=== PATIENT | male | born 1970 | race Caucasian/White ===

== ENCOUNTER 2016-11-10 16:43 | Observation (INO) | payer MEDICAID ==
[~2016-11-10] VITALS: Ht 177.8 cm; Wt 79.4 kg
[2016-11-10 17:02] LABS: Urine RBC None Seen /hpf (0 - 3)
[2016-11-10 17:25] LABS: Urine Bilirubin Negative (Negative); Urine Blood Negative /uL (Negative); Urine Color Yellow (Yellow); Urine Glucose TRACE mg/dL (Normal); Urine Hyaline Cast FEW /lpf (0 - 2); Urine Ketone Negative (Negative); Urine Mucus FEW (None Seen); Urine Nitrite Negative (Negative); Urine Squamous Epithelial Cell FEW /hpf (<5); Urine pH 5.5 (5.0-8.0)
[2016-11-10 17:30] LABS: Basophils # (auto) 0.1 uL; Basophils % (auto) 0.9 % (0.0-2.0); Eosinophils # (auto) 0.3 uL; Hematocrit 48.9 % (41.0-53.0); Hemoglobin 16.4 g/dL (13.5-17.5); Lymphocytes % (auto) 24.1 % (10.0-50.0); Mean Corpuscular Hemoglobin 30.8 pg (28.0-32.0); Mean Corpuscular Hgb Conc. 33.5 g/dL (32.0-36.0); Mean Corpuscular Volume 91.8 fL (80.0-100.0); Mean Platelet Volume 7.9 fL (7.4-10.4); Monocytes # (auto) 0.7 uL; Neutrophils # (auto) 5.3 uL; Platelet Count (auto) 344 10^3/uL (140-450); Red Cell Distribution Width 13.8 % (11.6-16.0); White Blood Cell 8.3 10^3/uL (4.4-10.8)
[2016-11-10 17:53] LABS: BUN/Creatinine Ratio 11.1; Bilirubin, Total 0.7 mg/dL (0.2-1.0); Calcium 9.3 mg/dL (8.5-10.1); Magnesium 2.3 mg/dL (1.6-2.6); Potassium 3.7 mmol/L (3.5-5.1); Total Protein 7.8 g/dL (6.4-8.2)
[2016-11-10] MEDS ORDERED: SODIUM CHLORIDE 0.9% 1,000 ML IVB ONE (18:11)
[2016-11-10] MEDS ORDERED: KETOROLAC TROMETH 30 MG/ML 1ML VIAL IV ONE (18:15)
[2016-11-10 18:34] LABS: Amylase 62 U/L (25-115)
[2016-11-10] MEDS ORDERED: PANTOPRAZOLE SODIUM 40 MG/10 ML VIAL IV ONE (19:30)
[2016-11-10 21:20] VITALS: BP 150/84
== END 2016-11-10 21:29 | disposition home or self-care (01) | DRG 241 ==
LOC: ER 16:53 → OVERFLOW 18:12 → ER 21:29
PROVIDERS: ADMIT Family Medicine; ATTEND Family Medicine
DX: K29.70 Gastritis, unspecified, without bleeding (principal); K76.0 Fatty (change of) liver, not elsewhere classified; R79.89 Other specified abnormal findings of blood chemistry; F17.210 Nicotine dependence, cigarettes, uncomplicated; Z82.49 Family history of ischemic heart disease and other diseases of the circulatory system
CPT/HCPCS: 36415; 71010; 74176; 80053; 80307; 80320; 81001; 82150; 83690; 83735; 84443; 84484; 85025; 96361; 96374; 99285; C9113; G0378; J7030

== ENCOUNTER 2016-12-10 19:40 | Inpatient (IN) | payer MEDICAID ==
[~2016-12-10] VITALS: Ht 177.8 cm; Wt 80.6 kg
[2016-12-10 20:38] LABS: Basophils # (auto) 0 uL; Basophils % (auto) 0.5 % (0.0-2.0); CONDITION Y; Eosinophils # (auto) 0.4 uL; Eosinophils % (auto) 5.9 % (0.0-7.0); Hematocrit 51.7 % (41.0-53.0); Hemoglobin 17.5 g/dL (13.5-17.5); Lymphocytes # (auto) 1.1 uL; Lymphocytes % (auto) 16.6 % (10.0-50.0); Mean Corpuscular Hemoglobin 31.1 pg (28.0-32.0); Mean Corpuscular Hgb Conc. 33.8 g/dL (32.0-36.0); Mean Platelet Volume 7.9 fL (7.4-10.4); Monocytes # (auto) 0.3 uL; Monocytes % (auto) 4.4 % (0.0-12.0); Neutrophils # (auto) 4.7 uL; Neutrophils % (auto) 72.6 % (37.0-80.0); Platelet Count (auto) 285 10^3/uL (140-450); Red Cell Distribution Width 13.8 % (11.6-16.0); White Blood Cell 6.5 10^3/uL (4.4-10.8)
[2016-12-10 20:57] LABS: INR 0.98 (0.9-1.15); Partial Thromboplastin Time 27.1 sec (22.64-33.71); Prothrombin Time 10.7 sec (9.37-12.3)
[2016-12-10 21:08] LABS: Albumin 3.9 g/dL (3.4-5.0); BUN/Creatinine Ratio 6.9; Bilirubin, Total 6.4 mg/dL (0.2-1.0); Potassium 3.7 mmol/L (3.5-5.1)
[2016-12-11] MEDS ORDERED: IOHEXOL 300 MG/ML 100ML BOTTLE IJ ONE (00:36)
[2016-12-11] MEDS ORDERED: SODIUM CHLORIDE 0.9% 2,000 ML IV ONE (00:45)
[2016-12-11 03:10] LABS: Urine Blood Negative /uL (Negative); Urine Color Brown (Yellow); Urine Glucose Normal (Normal); Urine Hyaline Cast FEW /lpf (0 - 2); Urine Ketone Negative (Negative); Urine Mucus FEW (None Seen); Urine Nitrite Negative (Negative); Urine RBC <1 /hpf (0 - 3); Urine pH 5.5 (5.0-8.0)
[2016-12-11 03:11] LABS: Urine Bilirubin 2+ (Negative)
[2016-12-11] MEDS ORDERED: MORPHINE SULF INJ 2 MG/ML SYRINGE 1ML IV PRN (05:15)
[2016-12-11] MEDS ORDERED: ONDANSETRON HCL 4 MG/2 ML VIAL IV PRN (05:15)
[2016-12-11] MEDS: SODIUM CHLORIDE 0.9% 1,000 ML IV SCH ×3 (05:45→21:30)
[2016-12-11] MEDS: SUCRALFATE 1 GM TAB PO SCH ×4 (06:31→21:53)
[2016-12-11] MEDS: FAMOTIDINE (10MG/ML) 2ML VL IV SCH ×2 (11:37→21:54)
[2016-12-11] MEDS ORDERED: SUCR1TAB38 OR (11:52)
[2016-12-11] MEDS ORDERED: PANT40TA2 PO (11:52)
[2016-12-11 16:43] VITALS: BP 120/79
[2016-12-11 20:00] VITALS: BP 123/79
[2016-12-11 22:00] VITALS: BP 123/79
[2016-12-12 04:41] VITALS: BP 113/67
[2016-12-12] MEDS: SODIUM CHLORIDE 0.9% 1,000 ML IV SCH (05:11)
[2016-12-12 06:47] LABS: Basophils # (auto) 0.1 uL; Basophils % (auto) 0.7 % (0.0-2.0); CONDITION Y; Eosinophils # (auto) 0.7 uL; Eosinophils % (auto) 8.8 % (0.0-7.0); Hematocrit 46.1 % (41.0-53.0); Hemoglobin 15.7 g/dL (13.5-17.5); Lymphocytes # (auto) 2.4 uL; Lymphocytes % (auto) 30.7 % (10.0-50.0); Mean Corpuscular Hemoglobin 31.4 pg (28.0-32.0); Mean Corpuscular Volume 92.4 fL (80.0-100.0); Mean Platelet Volume 8.6 fL (7.4-10.4); Monocytes # (auto) 0.5 uL; Monocytes % (auto) 6.1 % (0.0-12.0); Neutrophils # (auto) 4.2 uL; Neutrophils % (auto) 53.7 % (37.0-80.0); Platelet Count (auto) 249 10^3/uL (140-450); Red Cell Distribution Width 13.8 % (11.6-16.0); White Blood Cell 7.9 10^3/uL (4.4-10.8)
[2016-12-12 07:22] LABS: Albumin 3.1 g/dL (3.4-5.0); BUN/Creatinine Ratio 11.4; Bilirubin, Total 1.5 mg/dL (0.2-1.0); Calcium 8.4 mg/dL (8.5-10.1); Potassium 3.7 mmol/L (3.5-5.1); Total Protein 6.5 g/dL (6.4-8.2)
[2016-12-12] MEDS: SUCRALFATE 1 GM TAB PO SCH ×2 (07:38→11:30)
[2016-12-12 09:00] VITALS: BP 140/80
[2016-12-12] MEDS: FAMOTIDINE (10MG/ML) 2ML VL IV SCH (09:58)
[2016-12-12 13:00] VITALS: BP 121/77
[2016-12-12 16:27] VITALS: BP 121/77
[2016-12-12 16:49] VITALS: BP 141/85
== END 2016-12-12 17:20 | disposition home or self-care (01) | DRG 280 ==
LOC: ER 19:50 → OVERFLOW 19:51 → TELE-E-ADS 12-11 08:05 → WEST WING 12-11 14:39
PROVIDERS: ADMIT Family Medicine; ATTEND Internal Medicine
DX: K70.30 Alcoholic cirrhosis of liver without ascites (principal); K70.10 Alcoholic hepatitis without ascites; K80.21 Calculus of gallbladder without cholecystitis with obstruction; I10 Essential (primary) hypertension; K21.9 Gastro-esophageal reflux disease without esophagitis; F10.20 Alcohol dependence, uncomplicated; F17.210 Nicotine dependence, cigarettes, uncomplicated; K29.70 Gastritis, unspecified, without bleeding; K76.0 Fatty (change of) liver, not elsewhere classified; Z82.49 Family history of ischemic heart disease and other diseases of the circulatory system; Z71.89 Other specified counseling; K83.8 Other specified diseases of biliary tract
CPT/HCPCS: 36415; 74177; 76705; 80053; 80074; 80320; 81001; 82140; 82150; 83690; 85025; 85610; 85730; 96360; J3490

== ENCOUNTER 2017-05-16 21:12 | Inpatient (IN) | payer MEDICAID ==
[~2017-05-16] VITALS: Ht 177.8 cm; Wt 73.1 kg
[~2017-05-16 21:12] MED LIST: PANT40TA2 PO; SUCR1TAB38 OR
[2017-05-16 22:24] LABS: Basophils # (auto) 0.1 uL; Basophils % (auto) 1.3 % (0.0-2.0); Eosinophils # (auto) 0.3 uL; Eosinophils % (auto) 3.3 % (0.0-7.0); Hematocrit 46.9 % (41.0-53.0); Lymphocytes # (auto) 1.4 uL; Mean Corpuscular Hemoglobin 32.2 pg (28.0-32.0); Mean Corpuscular Hgb Conc. 34.2 g/dL (32.0-36.0); Mean Corpuscular Volume 94.1 fL (80.0-100.0); Mean Platelet Volume 7.7 fL (6.9-10.8); Monocytes # (auto) 0.5 uL; Monocytes % (auto) 5.9 % (0.0-12.0); Neutrophils # (auto) 6.9 uL; Neutrophils % (auto) 74.5 % (37.0-80.0); Nucleated Red Blood Cells % 0.1 %; Platelet Count (auto) 274 10^3/uL (140-450); Red Cell Distribution Width 13.8 % (11.8-14.3); White Blood Cell 9.2 10^3/uL (4.4-10.8)
[2017-05-16 22:50] LABS: Albumin 3.9 g/dL (3.4-5.0); Alkaline Phosphatase 285 U/L (45-117); Amylase 51 U/L (25-115); Anion Gap 8 (5-15); Aspartate Aminotransferase 1077 U/L (15-37); BUN/Creatinine Ratio 10.8; Bilirubin, Total 2.5 mg/dL (0.2-1.0); Blood Urea Nitrogen 9 mg/dL (7-18); Calcium 8.8 mg/dL (8.5-10.1); Carbon Dioxide 26 mmol/L (21-32); Chloride 103 mmol/L (98-107); GFR African American 127 mL/min; GFR Non-African American 105 mL/min; Glucose 103 mg/dL (74-106); Potassium 3.8 mmol/L (3.5-5.1); Sodium 137 mmol/L (136-145); Total Protein 7.8 g/dL (6.4-8.2)
[2017-05-16 23:33] LABS: Urine Bilirubin 1+ (Negative); Urine Blood Negative /uL (Negative); Urine Color Yellow (Yellow); Urine Glucose Normal (Normal); Urine Ketone TRACE (Negative); Urine Mucus FEW (None Seen); Urine Nitrite Negative (Negative); Urine RBC <1 /hpf (0 - 3); Urine Sperm PRESENT /hpf (None Seen); Urine Urobilinogen >12.0 mg/dL (Negative); Urine pH 8.5 (5.0-8.0)
[2017-05-17] MEDS ORDERED: NALBUPHINE HCL 10 MG/1ml INJECTION IV ONE
[2017-05-17] MEDS ORDERED: PANTOPRAZOLE 40 MG/10 ML VIAL IV ONE (01:00)
[2017-05-17] MEDS ORDERED: HYDROmorphone HCL 2 MG/ML VL IV PRN (01:00)
[2017-05-17] MEDS ORDERED: HYDROcodone-ACET 5/325MG TAB PO PRN (01:00)
[2017-05-17] MEDS ORDERED: ACETAMINOPHEN 325 MG TAB PO PRN (01:00)
[2017-05-17] MEDS ORDERED: ONDANSETRON HCL 4 MG/2 ML VIAL IV PRN ×2 (01:00→18:00)
[2017-05-17] MEDS: SODIUM CHLORIDE 0.9% 1,000 ML IV SCH ×2 (02:32→14:20)
[2017-05-17] MEDS ORDERED: PANTOPRAZOLE 40 MG/10 ML VIAL IV SCH (10:00)
[2017-05-17 11:51] LABS: Prothrombin Time 10.9 sec (9.37-12.3)
[2017-05-17 13:00] VITALS: BP 129/75
[2017-05-17 16:26] LABS: Basophils # (auto) 0 uL; Basophils % (auto) 0.2 % (0.0-2.0); Eosinophils # (auto) 0.5 uL; Eosinophils % (auto) 8.7 % (0.0-7.0); Hematocrit 44.5 % (41.0-53.0); Hemoglobin 15.1 g/dL (13.5-17.5); Lymphocytes # (auto) 1.8 uL; Lymphocytes % (auto) 29.2 % (10.0-50.0); Mean Corpuscular Hemoglobin 32.5 pg (28.0-32.0); Mean Corpuscular Volume 95.3 fL (80.0-100.0); Mean Platelet Volume 7.6 fL (6.9-10.8); Monocytes # (auto) 0.4 uL; Monocytes % (auto) 6.8 % (0.0-12.0); Neutrophils # (auto) 3.5 uL; Neutrophils % (auto) 55.1 % (37.0-80.0); Platelet Count (auto) 236 10^3/uL (140-450); Red Cell Distribution Width 14.2 % (11.8-14.3); White Blood Cell 6.3 10^3/uL (4.4-10.8)
[2017-05-17 16:42] LABS: INR 0.98 (0.9-1.15); Partial Thromboplastin Time 26.8 sec (22.64-33.71); Prothrombin Time 10.7 sec (9.37-12.3)
[2017-05-17] MEDS: MORPHINE SULF INJ 2 MG/ML SYRINGE 1ML IV PRN (16:44)
[2017-05-17 16:52] LABS: Albumin 3.5 g/dL (3.4-5.0); BUN/Creatinine Ratio 8.1; Bilirubin, Direct 1.8 mg/dL (0-0.2); Bilirubin, Total 3.3 mg/dL (0.2-1.0); Calcium 8.6 mg/dL (8.5-10.1); Magnesium 2.4 mg/dL (1.6-2.6); Potassium 4.2 mmol/L (3.5-5.1); Total Protein 7.3 g/dL (6.4-8.2)
[2017-05-17 17:00] VITALS: BP 142/85
[2017-05-17 21:34] VITALS: BP 138/83
[2017-05-18 04:39] VITALS: BP 133/77
[2017-05-18] MEDS: SODIUM CHLORIDE 0.9% 1,000 ML IV SCH ×2 (05:19→19:14)
[2017-05-18] MEDS: MORPHINE SULF INJ 2 MG/ML SYRINGE 1ML IV PRN (06:51)
[2017-05-18 07:12] LABS: Albumin 3.3 g/dL (3.4-5.0); Calcium 8.8 mg/dL (8.5-10.1); Potassium 4.2 mmol/L (3.5-5.1)
[2017-05-18 07:22] LABS: Bilirubin, Total 1.8 mg/dL (0.2-1.0)
[2017-05-18 07:34] LABS: Basophils # (auto) 0.1 uL; Basophils % (auto) 1.2 % (0.0-2.0); Eosinophils # (auto) 0.7 uL; Eosinophils % (auto) 10.4 % (0.0-7.0); Hematocrit 44.7 % (41.0-53.0); Hemoglobin 15.3 g/dL (13.5-17.5); Lymphocytes # (auto) 1.8 uL; Lymphocytes % (auto) 27.5 % (10.0-50.0); Mean Corpuscular Hemoglobin 32.6 pg (28.0-32.0); Mean Corpuscular Hgb Conc. 34.2 g/dL (32.0-36.0); Mean Corpuscular Volume 95.6 fL (80.0-100.0); Mean Platelet Volume 8.4 fL (6.9-10.8); Monocytes # (auto) 0.5 uL; Neutrophils # (auto) 3.5 uL; Neutrophils % (auto) 52.9 % (37.0-80.0); Platelet Count (auto) 241 10^3/uL (140-450); Red Cell Distribution Width 14.1 % (11.8-14.3); White Blood Cell 6.6 10^3/uL (4.4-10.8)
[2017-05-18 08:00] VITALS: BP 115/66
[2017-05-18 08:29] VITALS: BP 115/66
[2017-05-18] MEDS: PANTOPRAZOLE 40 MG TAB PO SCH (09:15)
[2017-05-18 12:35] VITALS: BP 130/79
[2017-05-18 16:38] VITALS: BP 113/68
[2017-05-18 22:00] VITALS: BP 123/76
[2017-05-19] VITALS (7 sets, daily range): BP systolic 107–130; BP diastolic 63–77
[2017-05-19] MEDS: MORPHINE SULF INJ 2 MG/ML SYRINGE 1ML IV PRN (00:40)
[2017-05-19 06:25] LABS: INR 0.98 (0.9-1.15); Prothrombin Time 10.7 sec (9.37-12.3)
[2017-05-19] MEDS: SODIUM CHLORIDE 0.9% 1,000 ML IV SCH (06:28)
[2017-05-19 06:31] LABS: Basophils # (auto) 0.1 uL; Eosinophils # (auto) 0.7 uL; Eosinophils % (auto) 9.6 % (0.0-7.0); Hematocrit 43.4 % (41.0-53.0); Hemoglobin 14.6 g/dL (13.5-17.5); Lymphocytes # (auto) 2.3 uL; Lymphocytes % (auto) 33.1 % (10.0-50.0); Mean Corpuscular Hemoglobin 32.3 pg (28.0-32.0); Mean Corpuscular Hgb Conc. 33.6 g/dL (32.0-36.0); Mean Corpuscular Volume 96.1 fL (80.0-100.0); Mean Platelet Volume 8.2 fL (6.9-10.8); Monocytes # (auto) 0.6 uL; Monocytes % (auto) 8.8 % (0.0-12.0); Neutrophils # (auto) 3.3 uL; Neutrophils % (auto) 47.5 % (37.0-80.0); Nucleated Red Blood Cells % 0.1 %; Platelet Count (auto) 218 10^3/uL (140-450); Red Cell Distribution Width 14.1 % (11.8-14.3)
[2017-05-19 06:59] LABS: Albumin 3.2 g/dL (3.4-5.0); BUN/Creatinine Ratio 6.8; Bilirubin, Direct 0.4 mg/dL (0-0.2); Bilirubin, Total 1.1 mg/dL (0.2-1.0); Calcium 8.7 mg/dL (8.5-10.1); Magnesium 2.4 mg/dL (1.6-2.6); Potassium 3.8 mmol/L (3.5-5.1); Total Protein 6.8 g/dL (6.4-8.2)
[2017-05-19] MEDS: PANTOPRAZOLE 40 MG TAB PO SCH (09:30)
[2017-05-19] MEDS: ENOXAPARIN SOD 40 MG/0.4 ML SYRINGE SC SCH (09:37)
[2017-05-20] VITALS (7 sets, daily range): BP systolic 115–138; BP diastolic 72–94
[2017-05-20] MEDS: PANTOPRAZOLE 40 MG TAB PO SCH ×2 (10:00→11:43)
[2017-05-20] MEDS: ENOXAPARIN SOD 40 MG/0.4 ML SYRINGE SC SCH (10:00)
[2017-05-21] VITALS (7 sets, daily range): BP systolic 97–141; BP diastolic 64–81
[2017-05-21 05:43] LABS: Basophils # (auto) 0.1 uL; Basophils % (auto) 0.9 % (0.0-2.0); Eosinophils # (auto) 0.5 uL; Eosinophils % (auto) 7.1 % (0.0-7.0); Hematocrit 46.4 % (41.0-53.0); Hemoglobin 15.9 g/dL (13.5-17.5); Lymphocytes # (auto) 2.7 uL; Lymphocytes % (auto) 35.7 % (10.0-50.0); Mean Corpuscular Hemoglobin 32.5 pg (28.0-32.0); Mean Corpuscular Hgb Conc. 34.4 g/dL (32.0-36.0); Mean Corpuscular Volume 94.5 fL (80.0-100.0); Mean Platelet Volume 8.4 fL (6.9-10.8); Monocytes # (auto) 0.7 uL; Monocytes % (auto) 8.8 % (0.0-12.0); Neutrophils # (auto) 3.5 uL; Neutrophils % (auto) 47.5 % (37.0-80.0); Nucleated Red Blood Cells % 0.1 %; Platelet Count (auto) 255 10^3/uL (140-450); Red Cell Distribution Width 13.7 % (11.8-14.3); White Blood Cell 7.5 10^3/uL (4.4-10.8)
[2017-05-21 05:51] LABS: INR 0.99 (0.9-1.15); Partial Thromboplastin Time 27.8 sec (22.64-33.71); Prothrombin Time 10.8 sec (9.37-12.3)
[2017-05-21 06:07] LABS: Albumin 3.6 g/dL (3.4-5.0); BUN/Creatinine Ratio 8.3; Bilirubin, Direct 0.4 mg/dL (0-0.2); Bilirubin, Total 1.2 mg/dL (0.2-1.0); Calcium 8.9 mg/dL (8.5-10.1); Potassium 3.9 mmol/L (3.5-5.1); Total Protein 7.2 g/dL (6.4-8.2)
[2017-05-21] MEDS ORDERED: IOHEXOL 300 MG/ML 100ML BOTTLE IJ ONE (09:00)
[2017-05-21] MEDS: ENOXAPARIN SOD 40 MG/0.4 ML SYRINGE SC SCH (10:00)
[2017-05-21] MEDS: PANTOPRAZOLE 40 MG TAB PO SCH (10:00)
[2017-05-21] MEDS ORDERED: fentaNYL CITRATE 100 MCG/2 ML VL ONE ×2 (10:06→10:27)
[2017-05-21] MEDS ORDERED: MIDAZOLAM HCL 1MG/1ML-2 ML VIAL ONE (10:07)
[2017-05-21] MEDS ORDERED: PROPOFOL 10 MG/ML 20 ML IV ONE (10:24)
[2017-05-21] MEDS ORDERED: ONDANSETRON HCL 4 MG/2 ML VIAL IV ONE (11:00)
[2017-05-21] MEDS ORDERED: hydrALAZINE HCL 20 MG/ML VL IV PRN (11:00)
[2017-05-21] MEDS ORDERED: ePHEDrine SULFATE 50 MG/ML AMP IV PRN (11:00)
[2017-05-21] MEDS: MORPHINE SULF INJ 2 MG/ML SYRINGE 1ML IV PRN ×3 (11:15→17:33)
[2017-05-22] MEDS: MORPHINE SULF INJ 2 MG/ML SYRINGE 1ML IV PRN ×3 (01:25→09:32)
[2017-05-22 05:05] VITALS: BP 119/77
[2017-05-22 05:20] LABS: Basophils # (auto) 0.1 uL; Basophils % (auto) 1.2 % (0.0-2.0); Eosinophils # (auto) 0.4 uL; Eosinophils % (auto) 4.1 % (0.0-7.0); Hematocrit 47.8 % (41.0-53.0); Hemoglobin 16.1 g/dL (13.5-17.5); Lymphocytes # (auto) 2.8 uL; Lymphocytes % (auto) 29.5 % (10.0-50.0); Mean Corpuscular Hgb Conc. 33.8 g/dL (32.0-36.0); Mean Corpuscular Volume 94.7 fL (80.0-100.0); Mean Platelet Volume 8.1 fL (6.9-10.8); Monocytes # (auto) 0.8 uL; Monocytes % (auto) 8.4 % (0.0-12.0); Neutrophils # (auto) 5.5 uL; Neutrophils % (auto) 56.8 % (37.0-80.0); Nucleated Red Blood Cells % 0.1 %; Platelet Count (auto) 266 10^3/uL (140-450); Red Cell Distribution Width 13.8 % (11.8-14.3); White Blood Cell 9.6 10^3/uL (4.4-10.8)
[2017-05-22 05:44] LABS: Albumin 3.8 g/dL (3.4-5.0); BUN/Creatinine Ratio 7.9; Bilirubin, Total 1.2 mg/dL (0.2-1.0); Calcium 9.2 mg/dL (8.5-10.1); Total Protein 7.7 g/dL (6.4-8.2)
[2017-05-22] MEDS: HYDROcodone-ACET 5/325MG TAB PO PRN ×2 (07:28→13:50)
[2017-05-22 09:00] VITALS: BP 120/72
[2017-05-22] MEDS: ENOXAPARIN SOD 40 MG/0.4 ML SYRINGE SC SCH (09:41)
[2017-05-22] MEDS: PANTOPRAZOLE 40 MG TAB PO SCH (09:41)
[2017-05-22 13:00] VITALS: BP 135/92
== END 2017-05-22 14:30 | disposition home or self-care (01) ==
LOC: ER 21:12 → OVERFLOW 21:13 → WEST WING 05-17 09:59
PROVIDERS: ADMIT Nurse Practitioner; ATTEND Internal Medicine
PROC: 0FC98ZZ Extirpation of Matter from Common Bile Duct, Via Natural or Artificial Opening Endoscopic (ICD-10-PCS; 2017-05-21)
PROC: BF101ZZ Fluoroscopy of Bile Ducts using Low Osmolar Contrast (ICD-10-PCS; 2017-05-21)
PROC: 0F798DZ Dilation of Common Bile Duct with Intraluminal Device, Via Natural or Artificial Opening Endoscopic (ICD-10-PCS; principal; 2017-05-21 10:10)
DX: K80.71 Calculus of gallbladder and bile duct without cholecystitis with obstruction (principal); Q28.2 Arteriovenous malformation of cerebral vessels; K70.30 Alcoholic cirrhosis of liver without ascites; K21.9 Gastro-esophageal reflux disease without esophagitis; B17.9 Acute viral hepatitis, unspecified; F17.210 Nicotine dependence, cigarettes, uncomplicated; I10 Essential (primary) hypertension; K76.0 Fatty (change of) liver, not elsewhere classified; Z82.49 Family history of ischemic heart disease and other diseases of the circulatory system; Z80.1 Family history of malignant neoplasm of trachea, bronchus and lung; Z79.899 Other long term (current) drug therapy
CPT/HCPCS: 36415; 71010; 74000; 74176; 74181; 76000; 78226; 80048; 80053; 80074; 80076; 80307; 81001; 82150; 83690; 83735; 84484; 85025; 85610; 85730; 86850; 86900; 86901; 96374; 96375; C9113; J2250; J2405; J2704

== ENCOUNTER 2021-06-14 02:35 | Emergency (ER) | payer MEDICAID ==
[~2021-06-14] VITALS: Ht 172.7 cm; Wt 81.6 kg
[~2021-06-14 02:35] MED LIST changes: +SUCR1TAB22 OR; -SUCR1TAB38 OR
[2021-06-14] MEDS: OXcarbazepine 300 MG TAB PO ONE (03:27)
[2021-06-14 04:07] LABS: Basophils # (auto) 0 10 ^3/uL (0-0.2); Basophils % (auto) 0.5 % (0.0-2.0); Eosinophils # (auto) 0.3 10 ^3/uL (0-0.8); Eosinophils % (auto) 4.1 % (0.0-7.0); Hematocrit 45.5 % (41.0-53.0); Hemoglobin 15.4 g/dL (13.5-17.5); Lymphocytes # (auto) 1.5 10 ^3/uL (0.4-5.4); Lymphocytes % (auto) 19.2 % (10.0-50.0); Mean Corpuscular Hemoglobin 30.9 pg (28.0-32.0); Mean Corpuscular Hgb Conc. 33.8 g/dL (32.0-36.0); Mean Corpuscular Volume 91.5 fL (80.0-100.0); Monocytes # (auto) 0.4 10 ^3/uL (0-1.3); Neutrophils # (auto) 5.4 10 ^3/uL (1.6-8.6); Neutrophils % (auto) 71.2 % (37.0-80.0); Nucleated Red Blood Cells % 0.1 %; Red Blood Cells 4.97 10^6/uL (4.5-5.90); Red Cell Distribution Width 13.3 % (11.8-14.3); White Blood Cell 7.5 10^3/uL (4.4-10.8)
[2021-06-14 04:25] LABS: Albumin 3.8 g/dL (3.4-5.0); BUN/Creatinine Ratio 10.9; Magnesium 3.2 mg/dL (1.6-2.6); Potassium 3.2 mmol/L (3.5-5.1)
[2021-06-14 04:27] LABS: INR 0.97 (0.9-1.15)
[2021-06-14 04:28] LABS: Bilirubin, Total 0.5 mg/dL (0.2-1.0); Total Protein 7.2 g/dL (6.4-8.2)
[2021-06-14 04:30] LABS: Lactic Acid w/Reflex 6.5 mmol/L (0.4-2.0)
[2021-06-14 05:22] VITALS: BP 144/92
== END 2021-06-14 06:50 | disposition home or self-care (01) ==
LOC: EDBD 02:35 → ER 02:35
DX: R56.9 Unspecified convulsions (principal); I10 Essential (primary) hypertension; K21.9 Gastro-esophageal reflux disease without esophagitis; F17.210 Nicotine dependence, cigarettes, uncomplicated; Z20.822 Contact with and (suspected) exposure to COVID-19
CPT/HCPCS: 36415; 80053; 83605; 83690; 83735; 83880; 85025; 85610; 87426

== ENCOUNTER 2024-06-26 07:03 | Emergency (ER) | payer MEDICAID ==
[~2024-06-26] VITALS: Ht 180.3 cm; Wt 84.2 kg
[~2024-06-26 07:03] MED LIST changes: -SUCR1TAB22 OR; +SUCR1TAB31 OR
--- NOTE | 2024-06-26 08:23 | ED.PDOC ---
History of Present Illness HPI Comments 54 y.o male with PMH of seizures, HDL and HTN, presents to the ED via EMS for an evaluation of ETOH. Patient reports he was drinking Whiskey and beer yesterday after moving some furniture around, states he went to bed and woke up with paramedics taking him to the ED. Patient reports mother called 911 but is unable to recall for what reason, unable to determine if he had a seizure as mother is not with patient at this time. Patient denies any chest pain, SOB, headaches, nausea, vomiting. Chief Complaint: ETOH Time Seen by MD: 08:07 Primary Care Provider: UNKNOWN Reviewed Notes: Nurses Notes, Security Operations Specialist Notes, Medications, Allergies Allergies: Coded Allergies: NO KNOWN ALLERGIES (Unverified , 06/14/21) Home Meds Reported Medications Sucralfate (CARAFATE) 1 Gm Tab, 1 GM OR TIDWMEALS, TAB 12/11/16 Pantoprazole Sodium Sesquihydr (Protonix) 40 Mg Tab, 40 MG PO DAILY, #30 TAB 12/11/16 Information Source: Patient Mode of Arrival: EMS Severity: Moderate Timing: Hours Duration: Since onset Past Medical History PAST MEDICAL HISTORY: Gallstones, GERD, High Lipids, HTN, Liver, Seizures Surgical History: Denies all surgeries Family History Family History: No family hx of Heart laura, No family hx of HTN Social History Smoker: Cigarettes, Less Than 1 Pack/Day Alcohol: Occasionally Drugs: Denies Drug Use Lives In: Home Constitutional: denies: chills, diaphoresis, fatigue, fever, malaise, sweats, weakness, others EENTM: denies: blurred vision, double vision, ear bleeding, ear discharge, ear drainage, ear pain, ear ringing, eye pain, eye redness, hearing loss, mouth pain, mouth swelling, nasal discharge, nose bleeding, nose congestion, nose pain, photophobia, tearing, throat pain, throat swelling, voice changes, others Respiratory: denies: cough, hemoptysis, orthopnea, SOB at rest, shortness of breath, SOB with excertion, stridor, wheezing, others Cardiovascular: denies: chest pain, dizzy spells, diaphoresis, Dyspnea on exert ion, edema, irregular heart beat, left arm pain, lightheadedness, palpitations, PND, syncope, others Gastrointestinal: denies: abdomen distended, abdominal pain, blood streaked bowels, constipated, diarrhea, dysphagia, difficulty swallowing, hematemesis, melena, nausea, poor appetite, poor fluid intake, rectal bleeding, rectal pain, vomiting, others Genitourinary: denies: burning, dysuria, flank pain, frequency, hematuria, incontinence, penile discharge, penile sore, pain, testicle pain, testicle swelling, urgency, others Neurological: reports: dizziness; denies: fainting, headache, left sided numbness, left sided weakness, numbness, paresthesia, pre-existing deficit, righ t sided numbness, right sided weakness, seizure, speech problems, tingling, tremors, weakness, others Integumetry: denies: bruises, change in color, change in hair/nails, dryness, laceration, lesions, lumps, rash, wounds, others Allergic/Immunocompromised: denies: Difficulty Healing, Frequent Infections, Hives, Itching, others Hematologic/Lymphatic: denies: anemia, blood clots, easy bleeding, easy bruising, swollen glands, others Endocrine: denies: excessive hunger, excessive sweating, excessive thirst, excessive urination, flushing, intolerance to cold, intolerance to heat, unexplained weight gain, unexplained weight loss, others Psychiatric: denies: anxiety, bipolar disorder, depression, hopeless, panic disorder, schizophrenia, sleepless, suicidal, others All Other Systems: Reviewed and Negative Physical Exam General Appearance: Mild Distress, Obese, Other (Postictal state) HEENT: Normal ENT Inspection, PERRL/EOMI Neck: Full Range of Motion, Non-Tender, Normal, Normal Inspection Respiratory: Chest Non-Tender, Lungs Clear, No Accessory Muscle Use, No Respiratory Distress, Normal Breath Sounds Cardiovascular: No Edema, No JVD, No Murmur, No Gallop, Normal Peripheral Pulses, Regular Rate/Rhythm Breast Exam: Deferred Gastrointestinal: No Organomegaly, Non Tender, No Pulsatile Mass, Normal Bowel Sounds, Soft Genitalia: Deferred Pelvic: Deferred Rectal: Deferred Extremities: No calf tenderness, Normal capillary refill, Normal inspection, Normal range of motion, Non-tender, No pedal edema Neurologic: master welder II-XII nml as Tested, Depressed Affect, Disoriented, No Motor Deficits, No Sensory Deficits Cerebellar Function: Unable to Test Reflexes: NOT DONE Skin: Dry, Normal Color, Warm Peripheral Pulses: 1+ carotid (R), 1+ carotid (L) Lymphatic: No Adenopathy Was a procedure done? Was a procedure done?: No Differential Dx Considerations may include: Seizure disorder ETOH postictal state hypertension altered liver enzymes electrolyte imbalance pneumonia X-Ray, Labs, Meds, VS Vital Signs Date Time Temp Pulse Resp B/P (MAP) Pulse Ox O2 Delivery O2 Flow Rate FiO2 06/26/24 08:20 97.7 97 16 154/89 (110) 95 97.7 06/26/24 07:22 98.3 115 16 144/51 (82) 94 06/26/24 07:14 104 Lab Test 06/26/24 10:00 06/26/24 09:06 Range/Units Urine Color Light-yellow Yellow Urine Clarity Clear Clear Urine pH 6.0 5.0-9.0 Urine Specific [place] 1.017 1.001-1.035 Urine Protein Negative Negative Urine Ketones Negative Negative Urine Blood Negative Negative /uL Urine Nitrite Negative Negative Urine Bilirubin Negative Negative Urine Urobilinogen Normal Negative mg/dL Urine Leukocyte Esterase Negative Negative /uL Urine RBC 5 0 - 3 /hpf Urine WBC 1 0 - 3 /hpf Urine Squamous Epithelial Cells None seen <5 /hpf Urine Bacteria None seen None Seen /hpf Urine Glucose Normal Normal mg/dL Urine Opiates Screen Neg NEGATIVE Urine Fentanyl Screen Neg NEGATIVE Urine Barbiturates Screen Neg NEGATIVE Urine Phencyclidine Screen Neg NEGATIVE Urine Amphetamines Screen Neg NEGATIVE Urine Benzodiazepines Screen Neg NEGATIVE Urine Cocaine Screen Neg NEGATIVE Urine Cannabinoids Screen Neg NEGATIVE White Blood Count 5.7 4.4-10.8 10^3/uL Red Blood Count 4.44 L 4.5-5.90 10^6/uL Hemoglobin 14.1 13.5-17.5 g/dL Hematocrit 40.2 L 41.0-53.0 % Mean Corpuscular Volume 90.6 80.0-100.0 fL Mean Corpuscular Hemoglobin 31.9 28.0-32.0 pg Mean Corpuscular Hemoglobin Concent 35.2 32.0-36.0 g/dL Red Cell Distribution Width 13.5 11.8-14.3 % Platelet Count 257 140-450 10^3/uL Mean Platelet Volume 6.9 6.9-10.8 fL Neutrophils (%) (Auto) 51.8 37.0-80.0 % Lymphocytes (%) (Auto) 32.9 10.0-50.0 % Monocytes (%) (Auto) 9.9 0.0-12.0 % Eosinophils (%) (Auto) 2.9 0.0-7.0 % Basophils (%) (Auto) 2.5 H 0.0-2.0 % Neutrophils # (Auto) 3.0 1.6-8.6 10 ^3/uL Lymphocytes # (Auto) 1.9 0.4-5.4 10 ^3/uL Monocytes # (Auto) 0.6 0-1.3 10 ^3/uL Eosinophils # (Auto) 0.2 0-0.8 10 ^3/uL Basophils # (Auto) 0.1 0-0.2 10 ^3/uL Nucleated Red Blood Cells 0.1 % Sodium Level 138 136-145 mmol/L Potassium Level 3.3 L 3.5-5.1 mmol/L Chloride Level 102 98-107 mmol/L Carbon Dioxide Level 28 20-31 mmol/L Anion Gap 8 5-15 Blood Urea Nitrogen 18 9-23 mg/dL Creatinine 0.90 0.700-1.30 mg/dL Glomerular Filtration Rate Calc 101 >90 mL/min BUN/Creatinine Ratio 20.0 10.0-20.0 Serum Glucose 117 H 74-106 mg/dL Calcium Level 10.0 8.7-10.4 mg/dL Magnesium Level 1.5 L 1.6-2.6 mg/dL Total Bilirubin 0.3 0.2-1.0 mg/dL Aspartate Amino Transferase (AST) 82 H 13-40 U/L Alanine Aminotransferase (ALT) 103 H 7-40 U/L Alkaline Phosphatase 80 46-116 U/L Troponin I High Sensitivity 5 </=54 ng/L Total Protein 7.1 5.7-8.2 g/dL Albumin 4.7 3.2-4.8 g/dL Lipase 45 12-53 U/L Plasma/Serum Blood Alcohol 115.4 H <10 mg/dL Current Medications Medications (Trade) Dose Ordered Sig/Luna Route Start Time Stop Time Status Last Admin Sodium Chloride 500 ml @ 500 mls/hr Q1H ONCE IVB 06/26/24 08:30 06/26/24 09:29 DC 06/26/24 08:30 Sodium Chloride 1,000 ml @ 150 mls/hr Q6H40M ONCE IV 06/26/24 08:30 06/26/24 15:09 06/26/24 08:30 Levetiracetam 100 ml @ 400 mls/hr ONCE ONCE IV 06/26/24 08:30 06/26/24 08:44 DC 06/26/24 10:09 EXAM: XY CHEST TWO VIEWS ROUTINE CLINICAL HISTORY: pain COMPARISON: None TECHNIQUE: Frontal and lateral view of the chest was obtained FINDINGS: Lines and Tubes: None Lungs: No focal consolidation. Pleura: No effusion. No pneumothorax. Cardiomediastinal contours: Unremarkable Bones: No acute osseous abnormality. IMPRESSION: No acute cardiopulmonary disease. X-Ray, Labs, Meds, VS Comment Course in the emergency department eventful patient came in because of ETOH but also seizure disorder and retrograde amnesia patient also has hypercholesterolemia and hypertension and also AVM and that from that he has a seizure Chest x-ray is normal EKG shows sinus tachycardia at 1:04 a.m. CBC normal Urine negative UDS negative ETOH at 1:15 a.m. 0.4 CMP negative except for potassium of 3.3 Magnesium 1.5 Liver enzymes elevated Troponin five Lipase 45 Patient will be hydrated medicated and discharged home Time of 1ST Reevaluation: 08:20 Reevaluation 1ST: Unchanged Patient Education/Counseling: Diagnosis, Treatment, Prognosis Family Education/Counseling: No Family Present Departure 1 Departure Time of Disposition: 12:55 Impression: Primary Impression: Seizure disorder Additional Impressions: Alcohol abuse Hypokalemia Hypomagnesemia Elevated liver enzymes Disposition: 01 HOME / SELF CARE / HOMELESS Condition: Fair Additional Instructions: Push fluids and follow up with your PCP Discharged With: Self Critical Care Note Critical Care Time?: No Stability Stability form required: No Heart Score Heart Score: Heart Score Response (Comments) Value History N/A 0 EKG Repolarization Disturb 1 Age 45-64 1 Risk Factors 1 or 2 risk factors 1 Troponin Normal limit 0 Total 3 I personally scribed for MARSHALL CORREA MD ([email or web address]) on 06/26/24 at 08:23. Electronically submitted by Rebeka Monreal ([employer]). I personally scribed for MARSHALL CORREA MD ([email or web address]) on 06/26/24 at 08:49. Electronically submitted by Rebeka Monreal ([facility]). MARSHALL CORREA MD Jun 26, 2024 08:23
[2024-06-26] MEDS: SODIUM CHLORIDE 0.9% 500 ML IVB ONE (08:30)
[2024-06-26] MEDS: SODIUM CHLORIDE 0.9% 1,000 ML IV ONE (08:30)
--- NOTE | 2024-06-26 08:45 | DVH ---
EXAM: XY CHEST TWO VIEWS ROUTINE CLINICAL HISTORY: pain COMPARISON: None TECHNIQUE: Frontal and lateral view of the chest was obtained FINDINGS: Lines and Tubes: None Lungs: No focal consolidation. Pleura: No effusion. No pneumothorax. Cardiomediastinal contours: Unremarkable Bones: No acute osseous abnormality. IMPRESSION: No acute cardiopulmonary disease.
[2024-06-26 09:42] LABS: Basophils # (auto) 0.1 10 ^3/uL (0-0.2); Basophils % (auto) 2.5 % (0.0-2.0); Eosinophils # (auto) 0.2 10 ^3/uL (0-0.8); Eosinophils % (auto) 2.9 % (0.0-7.0); Hematocrit 40.2 % (41.0-53.0); Hemoglobin 14.1 g/dL (13.5-17.5); Lymphocytes # (auto) 1.9 10 ^3/uL (0.4-5.4); Lymphocytes % (auto) 32.9 % (10.0-50.0); Mean Corpuscular Hemoglobin 31.9 pg (28.0-32.0); Mean Corpuscular Hgb Conc. 35.2 g/dL (32.0-36.0); Mean Corpuscular Volume 90.6 fL (80.0-100.0); Monocytes # (auto) 0.6 10 ^3/uL (0-1.3); Monocytes % (auto) 9.9 % (0.0-12.0); Neutrophils % (auto) 51.8 % (37.0-80.0); Nucleated Red Blood Cells % 0.1 %; Platelet Count (auto) 257 10^3/uL (140-450); Red Blood Cells 4.44 10^6/uL (4.5-5.90); Red Cell Distribution Width 13.5 % (11.8-14.3); White Blood Cell 5.7 10^3/uL (4.4-10.8)
[2024-06-26 10:02] LABS: Alanine Aminotransferase 103 U/L (7-40); Albumin 4.7 g/dL (3.2-4.8); Alkaline Phosphatase 80 U/L (46-116); Anion Gap 8 (5-15); Aspartate Aminotransferase 82 U/L (13-40); Bilirubin, Total 0.3 mg/dL (0.2-1.0); Blood Alcohol 115.4 mg/dL (<10); Blood Urea Nitrogen 18 mg/dL (9-23); Carbon Dioxide 28 mmol/L (20-31); Chloride 102 mmol/L (98-107); Glucose 117 mg/dL (74-106); Magnesium 1.5 mg/dL (1.6-2.6); Potassium 3.3 mmol/L (3.5-5.1); Sodium 138 mmol/L (136-145); Total Protein 7.1 g/dL (5.7-8.2)
[2024-06-26] MEDS: levETIRAcetam 1000 mg/100ml 100 ML IV ONE (10:09)
[2024-06-26 11:36] LABS: Urine Bacteria None Seen /hpf (None Seen)
[2024-06-26 11:41] LABS: Lipase 45 U/L (12-53)
[2024-06-26 12:06] LABS: Urine Blood Negative /uL (Negative); Urine Clarity Clear (Clear); Urine Color Light-Yellow (Yellow); Urine Protein, UAD Negative (Negative); Urine Specific Gravity 1.017 (1.001-1.035); Urine Squamous Epithelial Cell None Seen /hpf (<5); Urine Urobilinogen Normal (Negative); Urine WBC 1 /hpf (0 - 3)
[2024-06-26 12:24] LABS: Amphetamine Screen, Urine Neg (NEGATIVE); Barbiturate Scree,Urine Neg (NEGATIVE); Benzodiazephine Screen, Urine Neg (NEGATIVE); Cocaine Screen, Urine Neg (NEGATIVE); Opiate Scree,Urine Neg (NEGATIVE); Phencyclidine Screen, Urine Neg (NEGATIVE)
[2024-06-26 12:25] LABS: Cannabinoid Screen, Urine Neg (NEGATIVE)
[2024-06-26] MEDS: MAGNESIUM OXIDE 400 MG TAB PO ONE (13:22)
[2024-06-26] MEDS: POTASSIUM EFFERVESENT TAB 25 MEQ PO ONE (13:22)
[2024-06-26 14:27] VITALS: BP 150/91; PULSE 94; RESP 16; TEMP 98.2; O2SAT 99
--- NOTE | 2024-06-28 07:12 | ECG ---
[facility] Test Date: 2024-06-26 Test Time: 07:14:48 Pat Name: MADI BECKHAM Department: ER Room: Gender: M Die Maker Trim: ANA : 1970 Requested By: EMERGENCY EMERGENCY Order Number: [id number] Reading MD: Measurements Intervals [place] Rate: 104 P: 83 AK: 165 QRS: 81 QRSD: 87 T: 56 QT: 354 QTc: 466 Interpretive Statements Sinus tachycardia Borderline repolarization abnormality Please click the below link to view image of tracing.
== END 2024-06-26 14:28 | disposition home or self-care (01) ==
LOC: ER 07:03 → EDBD 07:03 → ER 14:28
DX: G40.909 Epilepsy, unspecified, not intractable, without status epilepticus (principal); F10.10 Alcohol abuse, uncomplicated; E87.6 Hypokalemia; E83.42 Hypomagnesemia; R74.8 Abnormal levels of other serum enzymes; I10 Essential (primary) hypertension; K21.9 Gastro-esophageal reflux disease without esophagitis; E78.5 Hyperlipidemia, unspecified; E78.00 Pure hypercholesterolemia, unspecified; F17.210 Nicotine dependence, cigarettes, uncomplicated; Z79.899 Other long term (current) drug therapy; Z98.890 Other specified postprocedural states
CPT/HCPCS: 36415; 71046; 80053; 80307; 80320; 81001; 83690; 83735; 84484; 85025; 93005; 96361; 96374; 99285; J1953; J7030; J7040